=== PATIENT | female | born 1950 ===

== ENCOUNTER 2021-10-24 00:37 | Emergency (ER) | payer MEDICARE, OTHER ==
[2021-10-24] MEDS ORDERED: Sodium Chloride 0.9% 10 ML Syringe FLUSH PRN (00:51)
[2021-10-24 01:37] LABS: ESTIMATED GFR 86 mL/min (>60)
[2021-10-24] MEDS ORDERED: Furosemide 40 MG/4 ML VIAL IVPUSH ONE (01:41)
[2021-10-24] MEDS ORDERED: Furosemide 40 MG/4 ML VIAL ONE (01:56)
== END 2021-10-24 02:03 | disposition home or self-care (01) ==
LOC: LB.ED 00:37
DX: J81.0 Acute pulmonary edema (principal); Z79.82 Long term (current) use of aspirin
CPT/HCPCS: 36415; 80048; 83880; 84484; 85027; 85379; 93005; 96374; 99285-25; J1940